=== PATIENT | female | born 1990 | race Caucasian/White ===

== ENCOUNTER 2018-01-10 23:32 | Emergency (ER) | payer SELFPAY ==
[2018-01-11] MEDS ORDERED: CYCLOBENZAPRINE HCL 10 MG TABLET PO ONE (01:04)
[2018-01-11] MEDS ORDERED: KETOROLAC TROMETHAMINE 60 MG/2 ML SDV IM ONE (01:17)
--- NOTE | 2018-01-11 01:34 | ER Document Report ---
HPI - HPI Patient complains to provider of: Back pain Time Seen by Provider: 01/11/18 00:55 Pain Level: 5 Context: Patient is a overweight 27-year-old female presenting to the emergency department complaining of lumbar back pain. Patient states she has had lumbar back pain for the last 3 days is denying any trauma. States today she did have some pain shooting down her left leg. Patient denies any loss of bowel or bladder, denies any urinary retention. Patient states when she takes at home Motrin it typically does help the pain but she has not taken any in the last 12 hours. Patient denies any heavy lifting, moving, exercising or twisting. Past medical history: None Medications: None Allergies: Lidocaine Surgical history: None Patient denies cigarette smoking, denies illicit drug use, denies EtOH use. Patient states she is unsure when her last menstrual period was because she has an IUD but states she has not partaking in sexual activity in over a year. - REPRODUCTIVE Reproductive: DENIES: : Past Medical History - General Information source: Patient - Social History Smoking Status: Never Smoker Chew tobacco use (# tins/day): No Frequency of alcohol use: None Drug Abuse: None Lives with: Family Family History: Arthritis, CAD, DM, Hyperlipidemia, Hypertension, Malignancy Patient has suicidal ideation: No Patient has homicidal ideation: No Neurological Medical History: Reports: Hx Migraine Renal/ Medical History: Reports: Hx Ovarian Cysts. Denies: Hx Peritoneal Dialysis - Immunizations Immunizations up to date: Yes Hx Diphtheria, Pertussis, Tetanus Vaccination: Yes Vertical Provider Document - CONSTITUTIONAL Agree With Documented VS: Yes Notes: GENERAL: Alert, interacts well. No acute distress. HEAD: Normocephalic, atraumatic. EYES: Pupils equal, round, and reactive to light. Extraocular movements intact. ENT: Oral mucosa moist, tongue midline. NECK: Full range of motion. Supple. Trachea midline. LUNGS: Clear to auscultation bilaterally, no wheezes, rales, or rhonchi. No respiratory distress. HEART: Regular rate and rhythm. No murmur ABDOMEN: Obese soft, non-tender. Non-distended. Bowel sounds present in all 4 quadrants. EXTREMITIES: Moves all 4 extremities spontaneously. No edema, normal radial and dorsalis pedis pulses bilaterally. No cyanosis. 5 out of 5 strength all 4 extremities. BACK: no cervical, thoracic midline tenderness. No saddle anesthesia, normal distal neurovascular exam. Lumbar midline tenderness patient states pain also radiates down her left buttocks and into the posterior aspect of her left leg. States pain stops above her knee. NEUROLOGICAL: Alert and oriented x3. Normal speech. cranial nerves II through XII grossly intact PSYCH: Normal affect, normal mood. SKIN: Warm, dry, normal turgor. No rashes or lesions noted. - INFECTION CONTROL TRAVEL OUTSIDE OF THE [place] IN LAST 30 DAYS: No Course - Re-evaluation Re-evalutation: 01/11/18 01:32 Patient denies any numbness or tingling in any extremity. Continues to deny urinary retention, loss of bowel or bladder. Cauda equina is unlikely at this time. Reviewed x-rays with patient at bedside. No signs of fractures. States pain was always on the left. States no pain was ever on the right flank or down the right buttocks. We will treat for sciatic nerve pain. States Flexeril and Toradol have helped her pain. Discussed following up with orthopedics. Vital signs and nursing notes reviewed. - Vital Signs Vital signs: Temp Pulse Resp BP Pulse Ox 98.2 F 85 16 137/78 H 98 01/11/18 00:01 01/11/18 00:01 01/11/18 00:01 01/11/18 00:01 01/11/18 00:01 Discharge - Discharge Clinical Impression: Lower back pain Qualifiers: Chronicity: acute Back pain laterality: midline Sciatica presence: with sciatica Sciatica laterality: sciatica of left side Qualified Code(s): M54.42 - Lumbago with sciatica, left side Condition: Stable Disposition: HOME, SELF-CARE Instructions: Low Back Pain ([facility]), Muscle Strain ([facility]), Pain Medication Injection ([facility]), Warm Packs ([facility]) Additional Instructions: You have been seen and treated in the emergency department for lower back pain. Your x-rays revealed no signs of fractures. You should take medications as prescribed. Please make sure you try and stretch out the muscles in your lower back and buttocks. Please follow-up with orthopedics for further evaluation. Please make an appointment with your primary care provider in the next 24-48 hours. Please return to the emergency room for any other concerning symptoms. Prescriptions: Ketorolac Tromethamine [Toradol 10 mg Tablet] 10 mg PO Q8HP PRN #24 tablet PRN Reason: Cyclobenzaprine HCl [Flexeril 10 mg Tablet] 10 mg PO TIDP PRN #15 tab PRN Reason: Referrals: CHRISTIANO STONER MD [ACTIVE STAFF] - Follow up as needed
--- NOTE | 2018-01-11 01:43 | RADIOLOGY REPORT (SQ) ---
EXAM DESCRIPTION: XR LUMBAR SPINE ANTEROPOSTERIOR, LATERAL, AND OBLIQUES COMPLETED DATE/TME: 01/11/2018 01:04 CLINICAL HISTORY: 27 years, Female, pain COMPARISON: None. NUMBER OF VIEWS: 5 TECHNIQUE: 5 view lumbar spine LIMITATIONS: None. FINDINGS: Vertebral body height and alignment is preserved. There are no pars defects. Sclerotic changes to the sacroiliac joints bilaterally. Correlate for any history of sacroiliitis. No periarticular erosive change. IUD in the pelvis. 3.1 mm calcification in the right upper quadrant. This is nonspecific IMPRESSION: Unremarkable appearance to the lumbar spine. Sclerotic changes to the sacroiliac joints bilaterally. Correlate for the possibility of sacroiliitis. 3.1 mm calcification in the right upper quadrant. This could reflect ingested material in bowel. Urinary tract calculus or gallstone not excluded entirely. 2011 [employer]- All Rights Reserved
[2018-01-11 02:20] VITALS: BP 122/68
== END 2018-01-11 02:20 | disposition home or self-care (01) ==
LOC: ER 23:32
DX: M54.42 Lumbago with sciatica, left side (principal)
CPT/HCPCS: 99284; 96372; 81025; 72110; J1885

== ENCOUNTER 2018-09-19 23:04 | Emergency (ER) | payer OTHER ==
[2018-09-20] MEDS ORDERED: DIPH/PERTUSS(ACELL)/TETANUS VAC/PF 0.5 ML SYR (>=10YO) IM ONE (01:08)
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
[2018-09-20 03:16] VITALS: BP 120/82
== END 2018-09-20 03:16 | disposition home or self-care (01) ==
LOC: ER 23:04
DX: S60.212A Contusion of left wrist, initial encounter (principal); S50.812A Abrasion of left forearm, initial encounter; M79.632 Pain in left forearm; M79.642 Pain in left hand; V43.52XA Car driver injured in collision with other type car in traffic accident, initial encounter; F17.210 Nicotine dependence, cigarettes, uncomplicated; Z71.6 Tobacco abuse counseling; Z88.4 Allergy status to anesthetic agent; Z23 Encounter for immunization
CPT/HCPCS: 99406; 99283; 73090; 73130; 90715; L3908

== ENCOUNTER 2018-11-23 03:12 | Emergency (ER) | payer OTHER ==
[2018-11-23] MEDS ORDERED: PREDNISONE 20 MG TABLET PO ONE (04:00)
[2018-11-23] MEDS ORDERED: IPRATROPIUM/ALBUTEROL 0.5-2.5 MG/3 ML AMPUL NEB ONE (04:00)
--- NOTE | 2018-11-23 04:12 | ER Document Report ---
ED Respiratory Problem - General Chief Complaint: Cold Symptoms Stated Complaint: COUGH,CHEST CONGESTION,STOMACH CRAMPING Time Seen by Provider: 11/23/18 03:49 TRAVEL OUTSIDE OF THE [place] IN LAST 30 DAYS: No - HPI Notes: This is a 28-year-old female who presents today with a 2-day history of cough, congestion, sneezing, rhinorrhea. 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 Cough is productive of clear sputum. She describes body aches also. She denies any fever or chills she denies any vomiting or diarrhea. Describes her symptoms as moderate. There are no obvious aggravating or relieving factors. - Related Data Allergies/Adverse Reactions: lidocaine [Lidocaine] Allergy (Verified 12/01/15 11:12) Past Medical History - Social History Smoking Status: Former Smoker Family History: Arthritis, CAD, DM, Hyperlipidemia, Hypertension, Malignancy Patient has suicidal ideation: No Patient has homicidal ideation: No Neurological Medical History: Reports: Hx Migraine Renal/ Medical History: Reports: Hx Ovarian Cysts. Denies: Hx Peritoneal Dialysis - Immunizations Immunizations up to date: Yes Hx Diphtheria, Pertussis, Tetanus Vaccination: Yes Review of Systems - Review of Systems Constitutional: denies: Chills, Fever Cardiovascular: denies: Chest pain, Palpitations, Heart racing Respiratory: Cough, Sputum, Wheezing -: Yes All other systems reviewed and negative Physical Exam - Vital signs Vitals: Temp Pulse Resp BP Pulse Ox 98.7 F 91 18 137/76 H 99 11/23/18 03:18 11/23/18 03:18 11/23/18 03:18 11/23/18 03:18 11/23/18 03:18 - General General appearance: Appears well, Alert - Respiratory Respiratory status: No respiratory distress Chest status: Nontender Breath sounds: Normal, Productive cough, Rhonchi, Wheezing Chest palpation: Normal - Cardiovascular Rhythm: Regular Heart sounds: Normal auscultation Murmur: No - Abdominal Inspection: Normal Distension: No distension Bowel sounds: Normal Tenderness: Nontender Organomegaly: No organomegaly - Neurological Neuro grossly intact: Yes Cognition: Normal Orientation: AAOx4 [place] Coma Scale Eye Opening: Spontaneous [place] Coma Scale Verbal: Oriented [place] Coma Scale Motor: Obeys Commands Dustin Coma Scale Total: 15 Speech: Normal Motor strength normal: LUE, RUE, LLE, RLE Sensory: Normal - Psychological Associated symptoms: Normal affect, Normal mood - Skin Skin Temperature: Warm Skin Moisture: Dry Skin Color: Normal Course - Re-evaluation Re-evalutation: 11/23/18 04:16 Differential diagnosis includes pneumonia versus sinusitis versus bronchitis versus bronchospasm. Will get chest x-ray. Will give breathing treatment. 11/23/18 05:36 Patient reevaluated. Patient is doing well. No wheezing on exam after DuoNeb treatment. Chest x-ray negative. We will put her on a Z-Agusto for acute bacterial bronchitis given rhonchi on examination today. Is stable for discharge. - Vital Signs Vital signs: Temp Pulse Resp BP Pulse Ox 98.7 F 91 18 137/76 H 99 11/23/18 03:18 11/23/18 03:18 11/23/18 03:18 11/23/18 03:18 11/23/18 03:18 Discharge - Discharge Clinical Impression: Acute bacterial bronchitis, Wheezing Condition: Good Disposition: HOME, SELF-CARE Instructions: Upper Respiratory Illness ([facility]), Bronchitis With Bronchospasm (Wheezing) ([facility]) Prescriptions: Benzonatate [Tessalon Perles 100 mg Capsule] 100 mg PO Q8HP PRN #40 capsule PRN Reason: Prednisone [Deltasone 20 mg Tablet] 3 tab PO DAILY 5 Days #15 tablet Albuterol Sulfate [Proair HFA Inhalation Aerosol 8.5 gm MDI] 2 puff IH Q4H PRN #1 mdi PRN Reason: Azithromycin [Zithromax 250 mg Tablet] 250 mg PO ASDIR PRN #6 tablet PRN Reason: Referrals: [facility] [NO LOCAL MD] - Follow up as needed
--- NOTE | 2018-11-23 04:46 | RADIOLOGY REPORT (SQ) ---
EXAM DESCRIPTION: XR CHEST 2 VIEWS COMPLETED DATE/TME: 11/23/2018 03:59 CLINICAL HISTORY: 28 years, Female, cough COMPARISON: 12/01/2015 NUMBER OF VIEWS: Two TECHNIQUE: Two views of the chest LIMITATIONS: None. FINDINGS: The lungs are clear. The heart is normal in size. There is no pneumothorax or pleural effusion. There is no acute fracture IMPRESSION: No acute cardiopulmonary abnormality copyright 2010 [employer]- All Rights Reserved
[2018-11-23] MEDS ORDERED: AZITHROMYCIN 250 MG TABLET PO ONE (05:39)
[2018-11-23 05:51] VITALS: BP 118/90
== END 2018-11-23 05:51 | disposition home or self-care (01) ==
LOC: ER 03:12
DX: J20.9 Acute bronchitis, unspecified (principal); R06.2 Wheezing; R68.89 Other general symptoms and signs; M79.10 Myalgia, unspecified site
CPT/HCPCS: 71046; J7512; J7620; 94640; 99283

== ENCOUNTER 2019-01-22 16:43 | Emergency (ER) | payer SELFPAY ==
[2019-01-22] MEDS ORDERED: ACETAMINOPHEN 325 MG TABLET PO ONE (17:59)
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
--- NOTE | 2019-01-22 18:42 | RADIOLOGY REPORT (SQ) ---
EXAM DESCRIPTION: ELBOW RIGHT OVER 2 VIEWS COMPLETED DATE/TIME: 01/22/2019 6:32 pm REASON FOR STUDY: pain COMPARISON: None. NUMBER OF VIEWS: Four views. TECHNIQUE: AP, lateral, and both oblique radiographic images acquired of the right elbow. LIMITATIONS: None. FINDINGS: MINERALIZATION: Normal. BONES: No acute fracture or dislocation. No worrisome bone lesions. JOINT: No effusion. SOFT TISSUES: No soft tissue swelling. No foreign body. OTHER: No other significant finding. IMPRESSION: NEGATIVE STUDY OF THE RIGHT ELBOW. NO RADIOGRAPHIC EVIDENCE OF ACUTE INJURY. TECHNICAL DOCUMENTATION: JOB ID: [id number] [employer]- All Rights Reserved Reading location - IP/workstation name: [email or web address]
[2019-01-22 18:56] VITALS: BP 122/54
== END 2019-01-22 18:56 | disposition home or self-care (01) ==
LOC: ER 16:43
DX: M25.521 Pain in right elbow (principal)
CPT/HCPCS: 99283

== ENCOUNTER 2019-04-27 07:41 | Emergency (ER) | payer SELFPAY ==
--- NOTE | 2019-04-27 08:45 | ER Document Report ---
HPI - HPI Time Seen by Provider: 04/27/19 08:18 Pain Level: 1 Notes: Patient is a 28-year-old female with no significant past medical history who presents complaining of having a dry cough the past week. She has had some watery diarrhea as well. She is otherwise able to eat and drink without difficulty. She is urinating normally and having normal bowel movements. She recently stopped smoking. Denies any headache, fever, neck pain, nasal maggie/discharge, sore throat, chest pain, palpitations, syncope, cough, shortness of breath, wheeze, dyspnea, abdominal pain, nausea/vomiting, urinary retention, dysuria, hematuria, back pain, or rash. - ROS Systems Reviewed and Negative: Yes All other systems reviewed and negative - RESPIRATORY Respiratory: REPORTS: Coughing - REPRODUCTIVE Reproductive: DENIES: : Past Medical History - Social History Smoking Status: Former Smoker Family History: Arthritis, CAD, DM, Hyperlipidemia, Hypertension, Malignancy Patient has suicidal ideation: No Patient has homicidal ideation: No Neurological Medical History: Reports: Hx Migraine Renal/ Medical History: Reports: Hx Ovarian Cysts. Denies: Hx Peritoneal Dialysis - Immunizations Immunizations up to date: Yes Hx Diphtheria, Pertussis, Tetanus Vaccination: Yes Vertical Provider Document - CONSTITUTIONAL Agree With Documented VS: Yes Notes: PHYSICAL EXAMINATION: GENERAL: Well-appearing, well-nourished and in no acute distress. A&Ox4. Answers questions appropriately. Moves comfortably w/o notable distress HEAD: Atraumatic, normocephalic. EYES: Pupils equal round and reactive to light, extraocular movements intact, sclera anicteric, conjunctiva are normal. ENT: Nares patent and with clear discharge. oropharynx no erythema without exudates. No tonsilar hypertrophy without erythema or exudate. No palatine shift. Uvula midline. No tongue protrusion. No drooling, hoarseness, or airway compromise. Moist mucous membranes. No sinus tenderness. NECK: Normal range of motion, supple without lymphadenopathy. No rigidity/meningismus. LUNGS: Breath sounds clear to auscultation bilaterally and equal. No wheezes rales or rhonchi. No retractions HEART: Regular rate and rhythm without murmurs, rubs, gallops. ABDOMEN: Soft, nontender, nondistended abdomen. No guarding, no rebound. Normal bowel sounds present. No CVA tenderness bilaterally. NEUROLOGICAL: Normal speech, normal gait. PSYCH: Normal mood, normal affect. SKIN: Warm, Dry, normal turgor, no rashes or lesions noted. - INFECTION CONTROL TRAVEL OUTSIDE OF THE [place] IN LAST 30 DAYS: No Course - Re-evaluation Re-evalutation: 04/27/19 09:47 Patient is an afebrile, well-hydrated, 28-year-old female who presents to the emergency department with an acute URI/diarrhea, suspect viral. Vitals are acceptable without significant tachycardia, tachypnea, or hypoxia. PE is otherwise unremarkable. Pt's abd is soft and non-tender throughout. She is nontoxic-appearing and is tolerating p.o. without difficulty. Lungs are clear to auscultation bilaterally. CXR unremarkable. No further labs or imaging warranted at this time. Low suspicion for any meningitis, sepsis, peritonsillar/pharyngeal abscess, respiratory compromise, pneumonia, acute abdomen, or other emergent systemic condition at this time. Patient is aware this condition can change from initial presentation and she needs to monitor symptoms closely. Conservative measures otherwise for symptoms. Recheck with your PCM in 3-5 days. Return to the ED with any worsening/concerning symptoms otherwise as reviewed in discharge. Patient is in agreement. - Vital Signs Vital signs: Temp Pulse Resp BP Pulse Ox 98.1 F 80 16 136/82 H 95 04/27/19 07:46 04/27/19 07:46 04/27/19 07:46 04/27/19 07:46 04/27/19 07:46 Discharge - Discharge Clinical Impression: Acute URI Diarrhea Qualifiers: Diarrhea type: unspecified type Qualified Code(s): R19.7 - Diarrhea, unspecified Condition: Stable Disposition: HOME, SELF-CARE Instructions: Upper Respiratory Illness ([facility]), Diarrhea, Nonspecific ([facility]) Additional Instructions: Maintain adequate fluid and food intake increase fiber/water intake Monitor for any worsening symptoms Make sure you are staying hydrated enough to urinate and have normal BM's Recheck with your PCM in 2-3 days Consider consult with Gastroenterology for ongoing/worsening symptoms Return to the ED with any worsening symptoms and/or development of fever, headache, chest pain, palpitations, syncope, shortness of breath, trouble breathing, abdominal pain, n/v/d, blood in stool/urine, weakness, or other worsening symptoms that are concerning to you. Prescriptions: Benzonatate [Tessalon Perles 100 mg Capsule] 100 mg PO Q8HP PRN #15 capsule PRN Reason: Forms: Elevated Blood Pressure Referrals: REJI BRIZUELA MD [ACTIVE STAFF] - Follow up as needed [facility] [Provider Group] - Follow up as needed
--- NOTE | 2019-04-27 09:17 | RADIOLOGY REPORT (SQ) ---
EXAM DESCRIPTION: CHEST 2 VIEWS COMPLETED DATE/TIME: 04/27/2019 9:03 am REASON FOR STUDY: cough COMPARISON: 11/23/2018. EXAM PARAMETERS: NUMBER OF VIEWS: two views TECHNIQUE: Digital Frontal and Lateral radiographic views of the chest acquired. RADIATION DOSE: NA LIMITATIONS: none FINDINGS: LUNGS AND PLEURA: No opacities, masses or pneumothorax. No pleural effusion. MEDIASTINUM AND HILAR STRUCTURES: No masses or contour abnormalities. HEART AND VASCULAR STRUCTURES: Heart normal size. No evidence for failure. BONES: No acute findings. HARDWARE: None in the chest. OTHER: No other significant finding. IMPRESSION: NO ACUTE RADIOGRAPHIC FINDING IN THE CHEST. TECHNICAL DOCUMENTATION: JOB ID: [id number] [employer]- All Rights Reserved Reading location - IP/workstation name: [email or web address]
[2019-04-27 10:15] VITALS: BP 113/66
== END 2019-04-27 10:13 | disposition home or self-care (01) ==
LOC: ER 07:41
DX: J06.9 Acute upper respiratory infection, unspecified (principal); R19.7 Diarrhea, unspecified; R05 Cough; Z87.891 Personal history of nicotine dependence
CPT/HCPCS: 71046; 99284